=== PATIENT | male | born 1970 | race Hispanic/Latino ===

== ENCOUNTER 2017-04-16 13:52 | Emergency (ER) | payer OTHER ==
--- NOTE | 2017-04-16 14:08 | ED PDOC ---
Arrival/HPI - General Historian: Patient - General Time Seen by Provider: 04/16/17 14:03 - History of Present Illness Narrative History of Present Illness (Text): 04/16/17 14:03 47 y/o male, no pmh, nkda, last tetanus doesn't remember, c/o rt. hand thumb laceration x 2 hours. Pt. stated that he is afraid of seeing his own blood and will usually get dizziness or occasional syncope when he sees his own blood. Pt. was at work, throwing out the tile with barehand, sustained the rt. hand thumb laceration, bleeding perfusely but now stopped which he sees his own blood and spontaneously feeling dizziness which he kneeled on his both knee but didn't pass out which quickly resolved after the ambulance arrived, no numbness or tingling, no difficulty flex or extending the injured thumb, no palpitation, no headache, no dizziness, no head/neck or back injury, no other medical or psychological complaints. (Masoud Phelan) Past Medical History - Provider Review Nursing Documentation Reviewed: Yes Family/Social History - Physician Review Nursing Documentation Reviewed: Yes Family/Social History: Unknown Family HX Allergies/Home Meds Allergies/Adverse Reactions: Allergies No Known Allergies Allergy (Verified 04/16/17 14:05) Review of Systems - Review of Systems Constitutional: absent: Fatigue, Fevers Eyes: absent: Vision Changes ENT: absent: Hearing Changes Respiratory: absent: SOB, Cough Cardiovascular: absent: Chest Pain Musculoskeletal: absent: Arthralgias, Back Pain, Neck Pain, Joint Swelling, Myalgias Skin: Laceration. absent: Rash, Pruritis, Skin Lesions, Abscess, Ulcer, Cellulitis Neurological: absent: Headache, Dizziness, Focal Weakness, Gait Changes Physical Exam - Systems Exam Head: Present: Atraumatic, Normocephalic Pupils: Present: PERRL Extroacular Muscles: Present: EOMI Conjunctiva: Present: Normal Mouth: Present: Moist Mucous Membranes Neck: Present: Normal Range of Motion Respiratory/Chest: Present: Clear to Auscultation, Good Air Exchange. No: Respiratory Distress, Accessory Muscle Use Cardiovascular: Present: Regular Rate and Rhythm, Normal S1, S2. No: Murmurs Abdomen: Present: Normal Bowel Sounds. No: Tenderness, Distention, Peritoneal Signs Back: Present: Normal Inspection Upper Extremity: Present: Normal Inspection, Other (Rt. hand thumb visible approx. 2cm superficial laceration on the lateral aspect with mild oozing, no deep laceration gap, no tendon involvement, FROM without limitation, sensation intact, motor 5/5. ). No: Cyanosis, Edema Lower Extremity: Present: Normal Inspection. No: Edema Neurological: Present: GCS=15, Speech Normal, Motor Func Grossly Intact, Gait Normal, Memory Normal Skin: Present: Warm, Dry, Normal Color. No: Rashes Psychiatric: Present: Alert, Oriented x 3, Normal Insight, Normal Concentration Vital Signs Temp Pulse Resp BP Pulse Ox 04/16/17 16:18 67 18 131/68 99 04/16/17 15:20 69 18 135/71 99 04/16/17 14:19 98.2 F 75 18 138/75 99 Medical Decision Making - Lab Interpretations I have reviewed the lab results: Yes Interpretation: No clinic. lab abnormalty - EKG Interpretation Interpreted by ED Physician: Yes Type: 12 lead EKG Comparison: No previous EKG avail. ED Course and Treatment: I was available for consultation during PA evaluation. The chart was reviewed by me, and I agree with disposition. The documented history was done by the physician compensation and benefits advisor. The documented physical exam was done by the physician compensation and benefits advisor. The documented procedures were done by the physician compensation and benefits advisor. ( Keenan Yung) 04/16/17 14:06 -labs/ekg -IVF -tetanus/keflex -rt. hand xray see the foreign body, removed with the irrigation and repeat with the xray to confirmed. 04/16/17 16:53 -Xray confirmed the removal of foreign body (dorsey piece of tile). -EKG: NSR @ 73 BPM, no ST elevation or depression, no T wave inversion, no previous ekg available for comparison. -Labs are non-significant. Pt. is asymptomatic after the IVF and feeling much better. Walking and drinking well. -sensation intact, motor 5/5, wound irrigate with normal saline 1000cc and clean with betadine, 1% lidocaine with 1cc for analgesic, 5-0 nylon made 9 sutures, hemostasis obtained, bacitracin and gauze applied, sensation intact, motor 5/5. -Case discussed with Dr. Yung and he agreed on the treatment and dispo plan. -Discharge home with keflex, motrin, bacitracin ointment, keep the dressing dry and clean for 24 hours, sutures need to be removed by day 10-11, follow up with your own pmd and hand specialist within 2 days, return to the ER for any new or worsening signs or symptoms. (Masoud Phelan) - Lab Interpretations Lab Results: 04/16/17 15:00 04/16/17 15:00 Lab Results 04/16/17 15:00: Sodium 138, Potassium 4.6, Chloride 101, Carbon Dioxide 30, Anion Gap 12, BUN 15, Creatinine 1.0, Est GFR ( Amer) > 60, Est GFR (Non- Af Amer) > 60, Random Glucose 105, Calcium 9.2, Total Bilirubin 0.5, AST 28, ALT 36, Alkaline Phosphatase 64, Total Protein 7.3, Albumin 4.3, Globulin 3.0, Albumin/Globulin Ratio 1.4 04/16/17 15:00: WBC 8.3, RBC 4.54, Hgb 13.4 L, Hct 41.3 L, MCV 91.0, MCH 29.5, MCHC 32.4, RDW 12.9, Plt Count 258, MPV 9.6, Gran % 81.9 H, Lymph % (Auto) 10.7 L, Cooper % (Auto) 6.2 H, Eos % (Auto) 1.1 L, Baso % (Auto) 0.1, Gran # 6.79 H, Lymph # 0.9 L, Cooper # 0.5, Eos # 0.1, Baso # 0.01 - RAD Interpretation Radiology Orders: 04/16/17 14:20 HAND RIGHT THUMB [RAD] Stat 04/16/17 16:07 HAND RIGHT THUMB [RAD] Stat - EKG Interpretation EKG Interpretation (Text): 04/16/17 15:15 NSR @ 73 BPM, no ST elevation or depression, no T wave inversion, no previous ekg avilable for comparison. (Masoud Phelan) - Medication Orders Current Medication Orders: Discontinued Medications Sodium Chloride (Sodium Chloride 0.9%) 1,000 mls @ 999 mls/hr IV .Q1H1M STA Stop: 04/16/17 15:20 Last Admin: 04/16/17 15:11 Dose: 999 mls/hr Tetanus/Reduced Diphtheria/Acell Pertussis (Boostrix Vaccine Inj) 0.5 ml IM .ONCE ONE Stop: 04/16/17 14:21 Last Admin: 04/16/17 15:12 Dose: 0.5 ml - PA / PLASTER MACHINE OPERATOR / Resident Statement MD/DO has reviewed & agrees with the documentation as recorded. Disposition/Present on Arrival - Present on Arrival Any Indicators Present on Arrival: No History of DVT/PE: No History of Uncontrolled Diabetes: No Urinary Catheter: No History of Decub. Ulcer: No - Disposition Have Diagnosis and Disposition been Completed?: Yes Disposition Time: 16:27 Patient Plan: Discharge - Disposition Diagnosis: Thumb laceration, Vasovagal attack, Foreign body (FB) in soft tissue Disposition: HOME/ ROUTINE Condition: IMPROVED Additional Instructions: Discharge home with keflex, motrin, bacitracin ointment, keep the dressing dry and clean for 24 hours, sutures need to be removed by day 10-11, follow up with your own pmd and hand specialist within 2 days, return to the ER for any new or worsening signs or symptoms. Prescriptions: Bacitracin Ointment [Bacitracin] 1 appful TOP BID #15 g Cephalexin [Keflex] 500 mg PO QID #36 capsule Ibuprofen [Motrin] 600 mg PO TID PRN #18 tab PRN Reason: Other Referrals: Jason Mazariegos MD [Primary Care Provider] - Follow up with primary Ziggy Galeano MD [Staff Provider] - Follow up with primary Forms: WORK NOTE
[2017-04-16 14:19] VITALS: RESP 18; TEMP 98.2; O2SAT 99; BMI 31.1
[2017-04-16] MEDS ORDERED: Sodium Chloride 0.9% 1,000 ML IV STA (14:20)
[2017-04-16] MEDS ORDERED: TDAP Vaccine 0.5 mL Syr IM ONE (14:20)
[2017-04-16 15:39] LABS: ADD MANUAL DIFF? NO
[2017-04-16 15:45] LABS: BASO # 0.01 K/mm3 (0.0-2.0); BASO % 0.1 % (0.0-3.0); EOS # 0.1 (0.0-0.7); EOS % 1.1 % (1.5-5.0); GRAN # 6.79 (1.4-6.5); GRAN % 81.9 % (50.0-68.0); HEMATOCRIT 41.3 % (42.0-52.0); LYMPH # 0.9 (1.2-3.4); LYMPH % 10.7 % (22.0-35.0); MEAN CORPUSCULAR HEMOGLOBIN 29.5 pg (25.0-35.0); MEAN CORPUSCULAR HGB CONC 32.4 g/dl (31.0-37.0); MEAN PLATELET VOLUME 9.6 fl (7.0-11.0); MONO # 0.5 (0.1-0.6); MONO % 6.2 % (1.0-6.0); PLATELET COUNT 258 10^3/uL (120.0-450.0); RED CELL DISTRIBUTION WIDTH 12.9 % (11.5-14.5); WHITE BLOOD COUNT 8.3 10^3/ul (4.5-11.0)
[2017-04-16 15:52] LABS: ALB/GLOB RATIO 1.4 (1.1-1.8); ALKALINE PHOSPHATASE 64 U/L (38-133); ALT/SGPT 36 U/L (7-56); AST/SGOT 28 U/L (15-59); BILIRUBIN,TOTAL 0.5 mg/dL (0.2-1.3); BLOOD UREA NITROGEN 15 mg/dL (7-21); CALCIUM 9.2 mg/dL (8.4-10.5); CARBON DIOXIDE 30 mmol/L (21-33); CHLORIDE 101 mmol/L (98-107); GFR AFRICAN-AMERICAN > 60; GLUCOSE,RANDOM 105 mg/dL (70-110); POTASSIUM 4.6 mmol/L (3.6-5.0); SODIUM 138 mmol/L (132-148); TOTAL PROTEIN 7.3 g/dL (5.8-8.3)
[2017-04-16 16:18] VITALS: BP 131/68; PULSE 67
--- NOTE | 2017-04-17 09:04 | RAD ---
PROCEDURE: Right Hand and thumb Radiographs. HISTORY: s/p foreign body removal COMPARISON: None. FINDINGS: BONES: Normal. No fracture. JOINTS: Normal. No osteoarthritic changes. SOFT TISSUES: Normal. OTHER FINDINGS: None. IMPRESSION: Negative study
--- NOTE | 2017-04-17 09:11 | RAD ---
PROCEDURE: Right Hand and thumb Radiographs. HISTORY: rt. hand thumb laceration by tile COMPARISON: None. FINDINGS: BONES: Normal. No fracture. JOINTS: Normal. No osteoarthritic changes. SOFT TISSUES: There is a linear dense foreign body lateral to the 1st DIP joint OTHER FINDINGS: None. IMPRESSION: There is a linear dense foreign body lateral to the 1st DIP joint
--- NOTE | 2017-04-17 09:41 | CARD ---
APPROVED REPORT EKG Measurement Heart [id number] <Conclusion> Normal sinus rhythm Normal ECG
== END 2017-04-16 17:06 | disposition home or self-care (01) ==
LOC: ED 13:52
DX: S61.021A Laceration with foreign body of right thumb without damage to nail, initial encounter (principal); W45.8XXA Other foreign body or object entering through skin, initial encounter; Y93.89 Activity, other specified; Y92.69 Other specified industrial and construction area as the place of occurrence of the external cause; Y99.8 Other external cause status; R55 Syncope and collapse; Z23 Encounter for immunization
CPT/HCPCS: 12001; 73140; 80053; 85025; 90471; 90715; 93005; 96360; 99285; J7040